=== PATIENT | female | born 1960 | race Caucasian/White ===

== ENCOUNTER 2018-07-23 12:17 | Day surgery (SDC) | payer OTHER ==
[~2018-07-23] VITALS: Ht 154.9 cm; Wt 76.4 kg
[~2018-07-23 12:17] MED LIST: TRAM50TA2; VIC
[2018-07-23 12:30] VITALS: Ht 154.9 cm; Wt 76.4 kg
[2018-07-23] MEDS ORDERED: SERTRALINE (12:51)
[2018-07-23] MEDS ORDERED: vitamin b12 (12:51)
[2018-07-23] MEDS ORDERED: dulcolax (12:51)
[2018-07-23] MEDS ORDERED: advil prn (12:51)
[2018-07-23] MEDS ORDERED: vitamin d3 (12:51)
[2018-07-23 12:52] VITALS: BP 130/71; PULSE 58; RESP 17
--- NOTE | 2018-07-23 13:56 | HPN ---
Date/Time of Note Date/Time of Note DATE: 07/23/18 TIME: 13:56 Interval H&P Admission Note Pt. seen H&P reviewed: No system changes ATILIO SAXENA Jul 23, 2018 13:56
[2018-07-23 14:00] VITALS: BP 106/63; PULSE 52; RESP 12
[2018-07-23] MEDS ORDERED: FENTAnyl 50 MCG/ML VIAL ONE (14:02)
[2018-07-23] MEDS ORDERED: MIDAZOLAM 1 MG/ML 2 ML INJ ONE ×3 (14:02→14:03)
== END 2018-07-23 15:46 | disposition home or self-care (01) ==
LOC: GIL 12:17
PROVIDERS: ATTEND Internal Medicine Gastroenterology
DX: Z12.11 Encounter for screening for malignant neoplasm of colon (principal); D12.5 Benign neoplasm of sigmoid colon; K25.9 Gastric ulcer, unspecified as acute or chronic, without hemorrhage or perforation; K64.8 Other hemorrhoids
CPT/HCPCS: 43239; 45380; 88305; 88312; 88313; J2250; J3010